=== PATIENT | female | born 2000 | race Caucasian/White ===

== ENCOUNTER 2025-05-24 07:10 | Inpatient (IN) | payer OTHER, SELFPAY ==
[2025-05-24] VITALS (38 sets, daily range): BP systolic 99–140; BP diastolic 53–91; PULSE 62–86; RESP 16; TEMP 36.1–36.9; O2SAT 89–100; BMI 32.9
--- NOTE | 2025-05-24 07:06 | PCM.HP.OB ---
HPI - General General Date of Admission: 05/24/25 HPI Narrative YEMI LOPEZ, is a 25 F at 39.6 who presents with contractions that started last night and have increased in intensity and frequency. Maternal Data Information LEODAN Calculator Estimated Delivery Date Method Current WG Current Estimate 05/25/25 Manual 39w 6d PFSH PFS Home Medications ?Medication ?Instructions ?Recorded ?Last Taken ?Type aspirin 81 mg capsule 81 mg PO DAILY 05/24/25 05/23/25 History escitalopram oxalate 10 mg tablet 10 mg PO DAILY 05/24/25 05/23/25 History (Lexapro) ondansetron HCl 4 mg tablet 4 mg PO DAILY 05/24/25 Unknown History Allergy/AdvReac Type Severity Reaction Status Date / Time No Known Allergies Allergy Verified 05/24/25 02:48 NST FHR Rate Baby A Baseline: 130 Variability:: Moderate Accelerations:: 15 x 15 Decelerations:: None NST Reactive:: Yes FHR Category:: Category I Uterine Activity:: TOCO reading every 2-3 minutes ROS Eyes Eyes: Denies blurry vision, change in vision or spots in vision ENT HEENT: Denies dizziness or headache(s) Cardiovascular Cardiovascular: Denies abdominal pain, chest pain or dyspnea Respiratory/Chest Respiratory/Chest: Denies cough, dyspnea, shortness of breath at rest or shortness of breath with exertion Gastrointestinal Gastrointestinal: Denies abdominal pain, diarrhea or vomiting Genitourinary Genitourinary: Denies change in urinary stream, difficulty urinating or dysuria Musculoskeletal Musculoskeletal: Reports none Integumentary Integumentary: Denies rash Neurologic Neurologic: Denies dizziness, headache(s), memory loss or weakness Psychiatric Psychiatric: Reports none Vital Signs Vital Signs Vital Signs: 05/24/25 02:43 05/24/25 02:43 05/24/25 02:44 Temperature Temperature Source Temporal Pulse Rate 74 Respiratory Rate Blood Pressure 128/80 H BP Systolic 128 BP Diastolic 80 Pulse Ox 05/24/25 02:44 05/24/25 02:44 05/24/25 06:55 Temperature 97.8 F Temperature Source Temporal Pulse Rate Respiratory Rate 16 Blood Pressure BP Systolic BP Diastolic Pulse Ox 05/24/25 06:55 05/24/25 06:55 05/24/25 06:56 Temperature 97.9 F Temperature Source Pulse Rate Respiratory Rate 16 Blood Pressure 122/78 H BP Systolic 122 BP Diastolic 78 Pulse Ox 05/24/25 06:56 05/24/25 06:56 Temperature Temperature Source Pulse Rate 77 Respiratory Rate Blood Pressure BP Systolic BP Diastolic Pulse Ox 98 Weight Weight: 180 lb Body Mass Index (BMI) 32.9 Physical Exam Const alert, oriented x3 and no apparent distress General Appearance: cooperative Orientation / Consciousness: awake Exam Limitations: no limitations HEENT normocephalic Head and Scalp: normal to inspection Eyes General Eye: normal appearance of both eyes Neck full ROM and no lymphadenopathy Lymph Lymphatic: no lymphadenopathy noted Chest inspection of chest normal Resp normal respiratory effort, normal air movement and clear to auscultation bilaterally Effort and Inspection: able to speak in complete sentences and symmetric chest movement Cardio regular rate and regular rhythm GI normal to inspection, nondistended, normoactive bowel sounds Manual OB Exam: presentation cephalic Back/Spine normal ROM Extremity full ROM and no calf tenderness Skin no rashes or lesions noted General Skin Exam: no breakdown Neuro oriented x3 and CN's II-XII intact bilaterally Psych mental status grossly normal and thought process normal Assessment & Plan (1) 39 weeks gestation of : (2) Spontaneous onset of labor: (3) History of anxiety: PLAN: Plan Cervical change from 3cm to 5cm with bulging bag Admit to labor and delivery Routine labs GBS NEG Epidural when indicated Dr. Weeks notified of admission and will be assuming management
[2025-05-24] MEDS: Lactated Ringers 1,000 ML 999 ML IV ×2 (07:55→13:29)
[2025-05-24 08:20] LABS: Hematocrit 39.9 % (37-47); Hemoglobin 13.8 g/dL (12.0-15.0); Immature Granulocytes Count 0.200 X10^3/uL (0.0-0.0); Mean Corp Hgb Conc 34.6 g/dL (32-36); Mean Corpuscular Volume 85.4 fL (81-99); Mean Platelet Vol. 11.4 fl (6.2-12.0); NRBC Flagged by Analyzer 0 % (0-5); Platelet Count 311 K/mm3 (150-450); RBC Distribution Width CV 11.9 % (11.6-14.6); RBC Distribution Width SD 36.4 fl (35.1-43.9); Red Blood Count 4.67 M/mm3 (4.2-5.4); White Blood Count 17.9 K/mm3 (4.4-11.0)
[2025-05-24 08:55] LABS: Syphilis Antibodies Nonreactive (Nonreactive)
[2025-05-24] MEDS: Lactated Ringers 1,000 ML 200 ML IV (08:56)
[2025-05-24] MEDS: fentaNYL-bupivacaine (epidural) 100 ML BAG EPIDURAL ×2 (09:08→13:45)
[2025-05-24] MEDS: Oxytocin 15 Units/NS 250ml 15 UNITS/250 ML IV.SOLN 334 UNITS IV (14:20)
--- NOTE | 2025-05-24 14:44 | EX.PCM.OBVAG ---
Maternal Data Information LEODAN Calculator Estimated Delivery Date Method Current WG Current Estimate 05/25/25 Manual 39w 6d Final LEODAN: 05/25/25 Final LEODAN Source: US <20 weeks Vaginal Delivery Maternal Presentation Maternal Presentation: Active Labor Vaginal Delivery Information Procedure Performed: Vacuum Assisted Vaginal Delivery Station at time of placement: +2 Number of vacuum pulls: 8 Number of vacuum pop offs: 2 Surgeon/Practitioner: Geraldine Dhillon Date of Procedure: 05/24/25 Pre-Procedure Diagnosis: 39.6 weeks, Active labor, Non reassuring status Post-Procedure Diagnosis: same, live male infant Type of anesthesia: Epidural Estimated Blood Loss: 250 Time of Delivery: 14:18 Findings Description of procedure: Patient progressed to fully dilated. Upon pushing the fetus was having decelerations to 70 bpm with slow recovery to baseline. Patient was placed in multiple different pushing positions including hands and knees. Fetus was still not tolerating. I felt at this time that the patient was making good progress with pushing. The head was at +2 to +3 with pushing. Piña catheter was placed. I discussed with the patient need for vacuum delivery versus primary section. After discussion with the risks and benefits patient and agreed to proceed with trial of vacuum. Patient was taken to the operating room she was placed in the supine position. Piña was draining adequately and her epidural was adequate. At this time the vacuum was placed and with good maternal pushing efforts there was good descent with the vacuum. We pushed for a total of 6 contractions with intermittent use of the vacuum there were a total of 2 pop-off's. Once the head was on the perineum there was a tight vaginal ring at this time patient was notified that I was going to make a right mediolateral episiotomy to expedite delivery. head then delivered followed by the anterior and posterior shoulder and the infant's body without delay. was placed on the mothers chest delayed cord clamping was performed for approximately 30 to 45 seconds and the cord was clamped and cut and the infant was taken back to the resuscitation room for further evaluation. It Integration Architect and respiratory were present for delivery. Pitocin was started placenta was delivered without complication and intact. Arterial and venous gases were obtained. At this time the RML was repaired using 2-0 Vicryl suture and a 3-0 Rapide to close the skin. Fundus was firm below umbilicus. Needle count and lap count were correct. Presentation: Vertex Amniotic Membrane Rupture Type: Artificial Amniotic Fluid Description: Clear Placental Delivery Description: Expressed Placenta Disposition: [facility] Specimen collected: No Cord Vessel Description: 3 Vessels Cord Entanglement: None Cord Gases: ABG and VBG A Gender: Male (1 minute): 7 (5 minute): 9 Delayed Cord Clamping: Yes Elementary Science Teacher high school art teacher: Yes Marine Service Operator: franco JUNIOR Tasks completed by respiratory therapist assistant: Retracting Additional psych assistant?: No Post Vaginal Deli Medications given after delivery: IV Pitocin Episiotomy Description: Right Mediolateral and 2nd degree Laceration: None Complication Complications: No
[2025-05-25 03:10] VITALS: BP 122/77; PULSE 72; RESP 16; TEMP 36.3; O2SAT 99
[2025-05-25 06:12] LABS: Hematocrit 33.0 % (37-47); Hemoglobin 11.5 g/dL (12.0-15.0); Immature Granulocytes Count 0.180 X10^3/uL (0.0-0.0); Mean Corp Hgb Conc 34.8 g/dL (32-36); Mean Corpuscular Volume 86.2 fL (81-99); Mean Platelet Vol. 11.1 fl (6.2-12.0); NRBC Flagged by Analyzer 0 % (0-5); Platelet Count 271 K/mm3 (150-450); RBC Distribution Width CV 12.1 % (11.6-14.6); RBC Distribution Width SD 38.3 fl (35.1-43.9); Red Blood Count 3.83 M/mm3 (4.2-5.4); White Blood Count 17.1 K/mm3 (4.4-11.0)
--- NOTE | 2025-05-25 06:41 | PCM.PROGNOTE ---
Subjective Subjective patient seen at bedside, doing well. Patient reports good pain control. lochia mild. Objective Data Objective Data Vital Signs: Vital Signs Temp Pulse Resp BP Pulse Ox O2 Del Method 97.3 F L 67 16 114/91 H 98 Room Air 05/24/25 23:46 05/24/25 23:46 05/24/25 23:46 05/24/25 23:46 05/24/25 23:46 05/24/25 23:46 Oxygen Delivery Method Room Air Weight: 81.647 kg Body Mass Index (BMI) 32.9 Intake & Output: Intake and Output for Last 24 Hours 05/23/25 05/24/25 05/25/25 23:59 23:59 23:59 Intake Total 3160.0 / 3160.0 Output Total 1100 / 1100 Balance 2060.0 / 2060.0 Lab / Micro Data 05/25/25 06:04 Labs: Laboratory Results - last 24 hr 05/24/25 07:55: WBC 17.9 H, RBC 4.67, Hgb 13.8, Hct 39.9, MCV 85.4, MCH 29.6, MCHC 34.6, RDW Std Deviation 36.4, RDW Coeff of Jesse 11.9, Plt Count 311, MPV 11.4, Immature Gran % (Auto) 1.100 H, Neut % (Auto) 82.4 H, Lymph % (Auto) 11.0 L, Menard % (Auto) 5.1, Eos % (Auto) 0.1, Baso % (Auto) 0.3, Absolute Neuts (auto) 14.8 H, Absolute Lymphs (auto) 1.97, Nucleated RBC % 0, Syphilis Total Ab Nonreactive, Blood Type A POSITIVE, Antibody Screen NEGATIVE 05/25/25 06:04: WBC 17.1 H, RBC 3.83 L, Hgb 11.5 L, Hct 33.0 L, MCV 86.2, MCH 30.0, MCHC 34.8, RDW Std Deviation 38.3, RDW Coeff of Jesse 12.1, Plt Count 271, MPV 11.1, Immature Gran % (Auto) 1.100 H, Neut % (Auto) 76.4 H, Lymph % (Auto) 13.5 L, Menard % (Auto) 8.5, Eos % (Auto) 0.4, Baso % (Auto) 0.1, Absolute Neuts (auto) 13.1 H, Absolute Lymphs (auto) 2.31, Nucleated RBC % 0 Physical Exam Narrative Abd: fundus firm. Const alert and oriented x3 General Appearance: cooperative HEENT normocephalic Neck General: normal visual inspection GI soft to palpation and non-distended GI Narrative: Fundus firm Extremity normal to inspection and no calf tenderness Skin no rashes or lesions noted Neuro oriented x3 and CN's II-XII intact bilaterally Psych mental status grossly normal Assessment & Plan Assessment/Plan (1) Vacuum-assisted vaginal delivery: PLAN: Plan PPD#1 , Doing well Routine care pain mgmt ambulation dc home
--- NOTE | 2025-05-25 06:42 | DCINST_ITS ---
Discharge Instructions
--- NOTE | 2025-05-25 06:42 | PCM.DC ---
Discharge Instructions DC O2, CPAP, BIPAP needs Home O2 Discharge instructions: No Dressing / Incision May resume sexual activity in: 6-8 weeks Dressing / Incision Call your doctor if you observe: Fever of 101 or Higher, Inability to urinate, Using more than 1 pad per hour and Uncontrolled pain Follow Up Care Please Follow Up With: Geraldine Dhillon MD When: 1 week post and again at 6 weeks post . [phone]: if you had PREECLAMPSIA or other Blood pressure concerns in labor you should be seen in 48-72 hours in the office. Test Results: Test results from this visit will be discussed in further detail at your follow-up appointment, if applicable. Discharge Plan Admission Admit Date/Time: 05/24/25 07:04 Attending Provider: Geraldine Dhillon Primary Care Provider: Tia Pereyra Discharge Orders/Prescriptions Prescriptions: New acetaminophen 500 mg Tablet 1,000 mg PO Q6H PRN PRN (Reason: Pain 1-10 Or Fever) Qty: 0 0RF ibuprofen 600 mg Tablet 600 mg PO Q6H PRN PRN (Reason: Pain Score 1-10) Qty: 0 0RF Continued escitalopram oxalate [Lexapro] 10 mg tablet 10 mg PO DAILY Discontinued aspirin 81 mg capsule 81 mg PO DAILY ondansetron HCl 4 mg tablet 4 mg PO DAILY Referrals / Follow Up: Tia Pereyra MD [Primary Care Provider, Medical] Disposition Disposition (needs filled in before D/C Order can be placed): Home, Self Care
--- NOTE | 2025-05-25 06:44 | PCM.DC.BLA ---
Discharge Summary Date of Admission: 05/24/25 Date of Discharge: 05/25/25 Summary: Patient admitted for active labor at 39 weeks gestation. Had a vacuum-assisted vaginal delivery with an uncomplicated course discharged home on day 1. Meaningful Use Info Meaningful Use Meaningful Use Diagnoses (Choose all that apply): None applicable Ischemic Stroke Statin Dosing Therapy Reference: STATIN DOSE THERAPY REFERENCE: * Patients > 75 years receive moderate or high dose statin therapy. * Patients 75 years or YOUNGER should receive HIGH intensity statin dose unless contraindicated. You will be required to document reason for non-treatment if statin daily dose does not meet guidelines. HIGH DOSE STATIN THERAPY DAILY Atorvastatin > than or = to 40 mg Rosuvastatin > than or = to 20 mg Amlodipine + Atorvastatin > than or = to 2.5/40 mg Ezetimibe + Simvastatin 10/80 mg Simvastatin 80mg Discharge Plan Admission Admit Date/Time: 05/24/25 07:04 Attending Provider: Geraldine Dhillon Primary Care Provider: iTa Pereyra Discharge Orders/Prescriptions Prescriptions: New acetaminophen 500 mg Tablet 1,000 mg PO Q6H PRN PRN (Reason: Pain 1-10 Or Fever) Qty: 0 0RF ibuprofen 600 mg Tablet 600 mg PO Q6H PRN PRN (Reason: Pain Score 1-10) Qty: 0 0RF Continued escitalopram oxalate [Lexapro] 10 mg tablet 10 mg PO DAILY Discontinued aspirin 81 mg capsule 81 mg PO DAILY ondansetron HCl 4 mg tablet 4 mg PO DAILY Referrals / Follow Up: Tia Pereyra MD [Primary Care Provider, Medical] Disposition Disposition (needs filled in before D/C Order can be placed): Home, Self Care
[2025-05-25 08:08] VITALS: BP 113/65; PULSE 73; RESP 16; TEMP 36.5; O2SAT 97
--- NOTE | 2025-05-25 11:41 | CASEMGMT ---
Social Work Assessment Labor and Delivery Unit Patient Address: [address] [place] [address] [address], [place] [address] Phone number: [phone] Date of Referral: 05/24/25 Time of Referral: 19:24 Referred By: Geraldine Dhillon Date of Intervention: 05/25/2025 Time of Intervention: 11:41 Reason for Referral: Anxiety History obtained from:? Mother of baby (MOB), father of baby (FOB/30-year-old Denis) and review of medical records. Household composition: MOB, FOB and their son, Yoan, born on 05/24/25. Patient's parent/guardian status: ???MOB denied any previous or current issues of domestic violence and described a positive relationship with the FOB. MOB and FOB both denied having any other children. Medical History: : 1, Para, now 1. MOB received care through [facility] beginning at 7 weeks and 6 days. Visits were observed to be routine. Apgars: 7 and 9. Weight: 3140 Grams. Cooker Chip: Reina Saxena. Educational Status: MOB and FOB denied any issues with reading, writing or learning comprehension. MOB earned an Associate?s Degree in Applied Sciences and is a registered dental hygienist and the FOB earned his certification to be a precinct police sergeant. Financial Status: MOB and FOB reported that their income is sufficient to meet the needs of their family at this time. MOB is currently employed full-time, however plans to return to work part-time/3 days a week following a 12-week maternity leave. SHERRILL is currently employed full-time as a precinct police sergeant in [place]. Supplies: MOB and FOB reported they have the supplies they need for baby at this time including but not limited to: Car seat, bassinet, crib, diapers, bottles, breast pump and clothing. Childcare/Caregiver(s): MOB reported that is currently on a waitlist for Daycare. Transportation: ?MOB and FOB denied any issues/barriers to transportation at this time. Programs/Agencies Involved: Denied. Children Services/Legal Issues: MOB and FOB denied any previous or current Children Services and/or legal involvement. Behavioral Health Issues: None reported/denied. ?? Mental Health History: MOB and FOB both have anxiety and are on Lexapro. MOB and FOB both described their symptoms as being successfully managed at this time. ?? Substance Use History:?? MOB and FOB denied any previous or current drug and/or alcohol abuse. ? Family History:?? MOB denied any mental health and/or drug/alcohol abuse history on her side of the family. SHERRILL stated his maternal grandfather is a recovering alcoholic and has been sober for 20 years. SHERRILL?s sister is also an alcoholic. FOB stated she does not have contact with his sister at this time. Drug Screens: None obtained for MOB or baby during this admission. Family/Social Stressors:?? Denied. Support Systems:? MOB identified her biggest support as the FOB, family as well as MOB?s parents. SHERRILL stated his parents live 40 minutes away and will ?be around? however FODenis denied having a close relationship with them at this time and denied that they will be a support. Depression/Shaken Baby/Safe Sleeping: Auto Parker provided verbal and written education on PPD, increased risk factors for PPD, Safe Sleeping and Shaken Baby.? MOB and FOB both verbalized an understanding.??? ASSESSMENT: MOB and FOB provided consent to social work visit. Upon arrival, the MOB was packing/preparing for upcoming discharge and the FOB was holding . Once social services arrived, the MOB sat in the hospital bed. MOB and FOB were both verbally engaged and cooperative. Auto Parker observed positive interaction between the MOB and baby as well as positive interaction with the MOB and FOB towards . During the time the FOB was holding , the FOB was observed to be very gentle/attentive and nurturing. At one point, baby began to cry and was handed to the MOB who then began . MOB was also observed to be attached and bonded with , was gentle and attentive. ??At the end of the assessment, Auto Parker requested to speak with the MOB alone, which she and the FOB were both agreeable to. MOB reported feeling safe in her home and denied any previous or current domestic violence, unmanaged mental health issues either with herself or with the FOB, and also denied any concerns with any drug or alcohol abuse either with herself or with the FOB. Safe Plan of Care for related to substance use: N/A PLAN: For MOB and baby to be discharged when medically ready. No other services requested or indicated. Radha Alamo, RAIL TRACTOR OPERATOR, ANTHROPOLOGIST PHYSICAL
[2025-05-25 11:42] VITALS: BP 136/68; PULSE 78; RESP 16; TEMP 36.2; O2SAT 97
[2025-05-25 16:52] VITALS: BP 129/74; PULSE 66; RESP 16; TEMP 36.2; O2SAT 98
== END 2025-05-25 17:00 | disposition home or self-care (01) | DRG 807 ==
LOC: WPOUT 07:11 → WP 07:12
PROVIDERS: Advanced Practice Midwife; Admitting Provider Obstetrics & Gynecology; PCP Internal Medicine; Referring Provider Obstetrics & Gynecology; Visit Provider Obstetrics & Gynecology
DX: O76 Abnormality in fetal heart rate and rhythm complicating labor and delivery (principal); Z37.0 Single live birth; O99.344 Other mental disorders complicating childbirth; F41.9 Anxiety disorder, unspecified; Z3A.39 39 weeks gestation of pregnancy; Z79.82 Long term (current) use of aspirin
CPT/HCPCS: 59050; 85025; 86780; 86850; 86900; 86901; 99221; G0378; J2405